=== PATIENT | male | born 1965 | race Caucasian/White ===

== ENCOUNTER 2021-12-29 17:28 | Emergency (ER) | payer MEDICARE, BC ==
[~2021-12-29] VITALS: Ht 170.2 cm; Wt 70.0 kg
[2021-12-29] MEDS ORDERED: EPIPEN 2-P0.3 MG/0.3 IM (18:19)
[2021-12-29] MEDS ORDERED: PREDNISONE50 MG PO (18:19)
[2021-12-29] MEDS ORDERED: CEPHALEXIN500 MG PO (18:19)
[2021-12-29 18:42] LABS: HEMATOCRIT 41.8 % (39.0-50.0); HEMOGLOBIN 13.3 g/dl (14.0-18.0); IMMATURE GRANULOCYTES 0.2 % (0.0-5.0); MEAN CELL VOLUME 77.8 fL CALC (80.0-100.0); MEAN CORPUSCULAR HGB 24.8 pG CALC (26.0-32.0); MEAN CORPUSCULAR HGB CONC 31.8 g/dL CAL (32.0-36.0); NEUT# 8.28 thou/uL (1.82-7.42); RED BLOOD COUNT 5.37 mill/uL (4.70-6.10); RED CELL DISTRI WIDTH 16.7 % (11.5-15.5)
[2021-12-29 19:02] LABS: ALBUMIN 4.5 g/dL (3.2-5.0); ALKALINE PHOSPHATASE 78 u/l (38-126); ANION GAP 14 (6-22 (CALC)); BILIRUBIN, TOTAL 0.7 mg/dL (0.0-1.4); BUN 15 mg/dL (9-20); BUN/CREATININE RATIO 15 (12-20 (CALC)); CARBON DIOXIDE 24 mmol/l (22-30); CHLORIDE 105 mmol/l (95-108); GFR FOR AFR.AMER. > 60 ML/MIN (>=60 (CALC)); GFR OTHER RACES > 60 ML/MIN (>=60 (CALC)); POTASSIUM 3.6 mmol/l (3.5-5.1); SGOT/AST 62 u/l (17-59); SODIUM 139 mmol/l (137-146); TOTAL PROTEIN 7.5 g/dL (6.3-8.2)
[2021-12-29 19:30] VITALS: BP 142/79
[2021-12-29 19:45] VITALS: BP 134/79
[2021-12-29 20:01] VITALS: BP 132/79
[2021-12-29 20:16] VITALS: BP 126/75
[2021-12-29 20:31] VITALS: BP 127/68
[2021-12-29 20:45] VITALS: BP 138/83
== END 2021-12-29 20:55 | disposition home or self-care (01) ==
LOC: ED 17:28
PROVIDERS: Family Medicine
DX: T78.40XA Allergy, unspecified, initial encounter (principal); L53.9 Erythematous condition, unspecified; I12.9 Hypertensive chronic kidney disease with stage 1 through stage 4 chronic kidney disease, or unspecified chronic kidney disease; E11.22 Type 2 diabetes mellitus with diabetic chronic kidney disease; N18.30 Chronic kidney disease, stage 3 unspecified; I25.10 Atherosclerotic heart disease of native coronary artery without angina pectoris; E78.5 Hyperlipidemia, unspecified; E11.40 Type 2 diabetes mellitus with diabetic neuropathy, unspecified; E11.51 Type 2 diabetes mellitus with diabetic peripheral angiopathy without gangrene; X58.XXXA Exposure to other specified factors, initial encounter; Z98.84 Bariatric surgery status; Z95.820 Peripheral vascular angioplasty status with implants and grafts; Z95.5 Presence of coronary angioplasty implant and graft

== ENCOUNTER 2022-03-30 11:04 | Emergency (ER) | payer MEDICARE, BC ==
[~2022-03-30] VITALS: Ht 170.2 cm; Wt 75.0 kg
[~2022-03-30 11:04] MED LIST: CEPHALEXIN500 MG PO; EPIPEN 2-P0.3 MG/0.3 IM; PREDNISONE50 MG PO
[2022-03-30 11:22] VITALS: BP 165/79
[2022-03-30] MEDS ORDERED: SPIRIVA RE1.25 MCG/A (11:31)
[2022-03-30] MEDS ORDERED: AZELASTINE HCL0.1 % (11:32)
[2022-03-30] MEDS ORDERED: LYRICA50 MG PO (11:33)
[2022-03-30] MEDS ORDERED: KERENDIA20 MG PO (11:34)
[2022-03-30] MEDS ORDERED: XARELTO10 MG PO (11:34)
[2022-03-30] MEDS ORDERED: PANTOPRAZOLE SO40 M3 PO (11:35)
[2022-03-30] MEDS ORDERED: SERTRALINE50 MG PO (11:36)
[2022-03-30] MEDS ORDERED: FARXIGA10 MG PO (11:37)
[2022-03-30] MEDS ORDERED: CRESTOR40 MG PO (11:37)
[2022-03-30] MEDS ORDERED: TRULICITY0.75 MG/0. (11:39)
[2022-03-30] MEDS ORDERED: LINZESS290 MCG PO (11:40)
[2022-03-30 12:00] VITALS: BP 154/91
[2022-03-30] MEDS ORDERED: NAPROXEN500 MG PO (12:43)
== END 2022-03-30 13:18 | disposition home or self-care (01) ==
LOC: ED 11:04
DX: S46.912A Strain of unspecified muscle, fascia and tendon at shoulder and upper arm level, left arm, initial encounter (principal); E11.22 Type 2 diabetes mellitus with diabetic chronic kidney disease; N18.30 Chronic kidney disease, stage 3 unspecified; E11.40 Type 2 diabetes mellitus with diabetic neuropathy, unspecified; E78.5 Hyperlipidemia, unspecified; W01.0XXA Fall on same level from slipping, tripping and stumbling without subsequent striking against object, initial encounter; Y92.007 Garden or yard of unspecified non-institutional (private) residence as the place of occurrence of the external cause

== ENCOUNTER 2022-11-23 08:13 | Emergency (ER) | payer MEDICARE, BC ==
[~2022-11-23] VITALS: Ht 170.2 cm; Wt 74.0 kg
[~2022-11-23 08:13] MED LIST changes: +AZELASTINE HCL0.1 %; +CRESTOR40 MG PO; +FARXIGA10 MG PO; +KERENDIA20 MG PO; +LINZESS290 MCG PO; +LYRICA50 MG PO; +NAPROXEN500 MG PO; +PANTOPRAZOLE SO40 M3 PO; +SERTRALINE50 MG PO; +SPIRIVA RE1.25 MCG/A; +TRULICITY0.75 MG/0.; +XARELTO10 MG PO
[2022-11-23 09:28] VITALS: BP 162/104
== END 2022-11-23 09:30 | disposition home or self-care (01) ==
LOC: ED 08:13
DX: M25.562 Pain in left knee (principal); E11.22 Type 2 diabetes mellitus with diabetic chronic kidney disease; N18.30 Chronic kidney disease, stage 3 unspecified; E11.40 Type 2 diabetes mellitus with diabetic neuropathy, unspecified; E78.5 Hyperlipidemia, unspecified; Z95.5 Presence of coronary angioplasty implant and graft; Z98.84 Bariatric surgery status